=== PATIENT | male | born 1980 | race Caucasian/White ===

== ENCOUNTER 2020-12-26 21:33 | Emergency (ER) | payer OTHER ==
[~2020-12-26] VITALS: Ht 170.2 cm; Wt 104.3 kg
[2020-12-26] MEDS ORDERED: MICARDIS20 MG PO (21:40)
[2020-12-26] MEDS ORDERED: VIBATIV750 MG IV (21:40)
== END 2020-12-27 01:44 | disposition home or self-care (01) ==
LOC: ER 21:33 → CPU-OBS 22:58 → ER 22:58
DX: R07.89 Other chest pain (principal); R00.0 Tachycardia, unspecified; F06.4 Anxiety disorder due to known physiological condition; T44.3X5A Adverse effect of other parasympatholytics [anticholinergics and antimuscarinics] and spasmolytics, initial encounter; Y92.89 Other specified places as the place of occurrence of the external cause
CPT/HCPCS: G0378; G0379; 93005

== ENCOUNTER → 2021-03-26 | Emergency (ER) | payer OTHER ==
[~2021-03-26] VITALS: Ht 170.2 cm; Wt 102.1 kg
[~2021-03-26] MED LIST: BAYER THERAPY325 MG PO; MICARDIS20 MG PO; VIBATIV750 MG IV
== END | disposition home or self-care (01) ==
LOC: ER 07:52
DX: M25.529 Pain in unspecified elbow (principal)

== ENCOUNTER 2021-09-18 12:52 | Emergency (ER) | payer OTHER | END 2021-09-18 18:08 | disposition home or self-care (01) | LOC: ER 12:52 | DX: R33.9 Retention of urine, unspecified (principal); Z90.5 Acquired absence of kidney ==